=== PATIENT | male | born 1975 | race Two or more races ===

== ENCOUNTER 2018-06-02 12:09 | Emergency (ER) | payer OTHER ==
[2018-06-02] MEDS ORDERED: LIDOCAINE 4%/MENTHOL 1% PATCH TD ONE ×2 (12:29)
--- NOTE | 2018-06-02 12:36 | EDPHY ---
H & P Time Seen by Provider: 06/02/18 12:17 HPI/ROS: CHIEF COMPLAINT: Acute exacerbation of chronic T-spine pain HISTORY OF PRESENT ILLNESS: 42-year-old male complaining of acute exacerbation of chronic upper thoracic spine pain. Patient splits his time between [place] and [place], is going to be in [place] for few months. Does not have primary care provider. He went to Urgent Care was referred to the ER for possible MRI by the urgent care provider. He denies acute trauma, denies fall. He is a professional keyboard musician. He denies: Peripheral paresthesia, weakness, numbness, dyspnea, headache, manipulation or trauma to the thoracic or cervical spine. PRIMARY CARE PROVIDER: REVIEW OF SYSTEMS: 10 systems reviewed and negative with the exception of the elements mentioned in the history of present illness PAST MEDICAL & SURGICAL HISTORY: chronic history of thoracic back SOCIAL HISTORY: Nonsmoker no drug use PHYSICAL EXAM (Prior to examination, patient consented to physical exam, hands were washed and my usual and customary physical exam procedures followed) 1) GENERAL: Well-developed, well-nourished, alert and oriented. Appears nontoxic 2) HEAD: Normocephalic, atraumatic 3) HEENT: Pupils equal, round, reactive to light bilaterally. Sclera anicteric. 4) NECK: Full range of motion, no meningeal signs. 5) LUNGS: Clear auscultation bilaterally, no wheezes, no rhonchi, no retractions. 6) HEART: Regular rate and rhythm, no murmur, no heave, no gallop. 7) ABDOMEN: No guarding, no rebound, no focal tenderness,, 8) MUSCULOSKELETAL: Tender to palpation left paraspinous thoracic region approximately T2-T3. No visible trauma. No midline pain no spinous process pain. No effusion. No step-off. Moving all extremities, no focal areas of tenderness, no obvious trauma. No peripheral edema or discoloration. 9) BACK: No CVA tenderness, no midline vertebral tenderness, no fluctuance, no step-off, no obvious trauma, no visual or palpable abnormality. 10) SKIN: No rash, no petechiae. 11) CERVICAL SPINE NEURO EXAM: Bilateral reflexes of biceps triceps brachioradialis intact equal bilaterally Motor exam: deltoid, biceps, wrist extension, tricep, finger extension, finger flexion, finger abduction intact equal bilaterally 5/5 DIFFERENTIAL DIAGNOSIS: In no particular order including but not limited to cervical strain, discogenic etiology, infectious spinal etiology, aortic dissection Smoking Status: Never smoked Constitutional: Initial Vital Signs Temperature (C) 37.1 C 06/02/18 12:13 Heart Rate 84 06/02/18 12:13 Respiratory Rate 18 06/02/18 12:13 Blood Pressure 137/100 H 06/02/18 12:13 O2 Sat (%) 98 06/02/18 12:13 O2 Delivery Mode Room Air Allergies/Adverse Reactions: erythromycin base Allergy (Verified 06/02/18 12:16) Home Medications: Medication Instructions Recorded Lidocaine [Lidoderm] 1 each TP BID #30 adh..patch 06/02/18 oxyCODONE/APAP 5/325 [Percocet 1 tab PO Q6 #7 tab 06/02/18 5/325] MDM/Departure - MDM Medications Given: Discontinued Medications Miscellaneous Medication (Icy Hot Lidocaine/Menthol 4%/1% Patch) 1 patch TD EDNOW ONE Stop: 06/02/18 12:30 Last Admin: 06/02/18 12:33 Dose: 1 patch ED Course/Re-evaluation: 12:36 p.m.: I have evaluated the patient. No neurologic deficits on exam. He is focally tender to palpation the left paraspinous thoracic region. Doubt vasculopathy. He inquired about an MRI from the emergency department. This has been an ongoing issue for the patient. I have informed the patient that I cannot rule out discogenic etiology such as herniation however at this time I do not think that emergent MRI is indicated, although this may be indicated on outpatient basis. I have recommended follow-up and have provided this follow- up information. I provided him Lidoderm prescription and a small prescription for Percocet with my usual and customary opiate precautions instructions. He is comfortable this plan. Patient feels comfortable being discharged. All questions and concerns addressed by myself. Patient given my usual and customary discharge precautions and instructions regarding their clinical impression. Care of patient under supervision of secondary supervising physician Dr Coronado . - Depart Disposition: Home, Routine, Self-Care Clinical Impression: Thoracic back pain Qualifiers: Chronicity: acute Back pain laterality: left Qualified Code(s): M54.6 - Pain in thoracic spine Condition: Good Instructions: Thoracic Back Strain (ED) Additional Instructions: Seek medical attention if you develop new or worsening pain, if you develop bladder or bowel dysfunction, numbness around your perineum, foot drop, or any other symptoms that concern you. Prescriptions: Lidocaine [Lidoderm] 1 each TP BID #30 adh..patch oxyCODONE/APAP 5/325 [Percocet 5/325] 1 tab PO Q6 #7 tab Referrals: [facility],. [Clinic] - 2-3 days, call for appt.
[2018-06-02 12:44] VITALS: BP 129/77
[2018-06-02] MEDS ORDERED: PATCH REMOVAL 1 EA PATCH TD SCH (21:00)
== END 2018-06-02 12:52 | disposition home or self-care (01) ==
DX: M54.6 Pain in thoracic spine (principal)